=== PATIENT | female | born 1965 | race Hispanic/Latino ===

== ENCOUNTER 2024-05-10 22:32 | Emergency (ER) | payer BC ==
[~2024-05-10] VITALS: Ht 152.4 cm; Wt 72.6 kg
[~2024-05-10 22:32] MED LIST: METO-408 PO; NITR0.4T SL
[2024-05-10 22:33] VITALS: TEMP 98
--- NOTE | 2024-05-10 22:38 | EKG ---
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
[2024-05-10 22:51] LABS: BASOPHILS # (AUTO) 0.07 K/uL (0.00-0.20); BASOPHILS % (AUTO) 0.4 % (0.0-5.0); EOSINOPHILS # (AUTO) 0.45 K/uL (0.00-0.70); EOSINOPHILS % (AUTO) 2.6 % (0.0-8.0); HEMATOCRIT 35.9 % (36-48); IMMATURE GRANULOCYTE ABSOLUTE 0.07 K/uL (0-1); LYMPHOCYTES # (AUTO) 4.2 K/uL (1.0-4.8); LYMPHOCYTES % (AUTO) 24.3 % (21.0-51.0); MEAN CORPUSCULAR HEMOGLOBIN 28.2 pg (27.0-33.0); MEAN CORPUSCULAR HGB CONC 34.5 g/dL (32.0-36.0); MEAN CORPUSCULAR VOLUME 81.6 fL (79-99); MONOCYTES # (AUTO) 1.1 K/uL (0.1-1.0); MONOCYTES % (AUTO) 6.3 % (3.0-13.0); NEUTROPHILS # (AUTO) 11.4 K/uL (1.8-7.7); PLATELET COUNT (AUTO) 311 K/uL (130-400); RED CELL DISTRIBUTION WIDTH 13.2 % (11.0-15.5); WHITE BLOOD COUNT (AUTO) 17.2 K/uL (4.8-10.8)
[2024-05-10 22:58] LABS: CREATININE 0.6 mg/dL (0.5-1.0); POTASSIUM 3.6 mmol/L (3.5-5.1)
[2024-05-10 23:17] LABS: B-TYPE NATRIURETIC PEPTIDE 6 pg/mL (0-100)
--- NOTE | 2024-05-10 23:59 | NUR ---
PT PLACED IN ED ROOM 3. PT CARE ASSUMED AT THIS TIME
[2024-05-11] MEDS: acetaMINOPHEN 500 MG TABLET PO ONE (00:32)
--- NOTE | 2024-05-11 00:51 | ERN ---
General Chief Complaint: Chest Pain Stated Complaint: LEFT ARM PAIN Time Seen by MD: 22:33 Source: patient History of Present Illness Initial Comments 59-year-old female coming in with left-sided chest pain. She states that the pain began in her left upper extremity proximal. She states that the pain began there were started radiating to her left pectoralis muscle area. She was concerned because if she does have a history of CABG. She also states he took her nitroglycerin and states that it did help with the discomfort. Allergies: Coded Allergies: No Known Drug Allergies (Unverified Allergy, Unknown, 06/18/14) Home Meds Reported Medications Metoprolol Succinate (Metoprolol Succinate) 25 Mg Tab.er.24h, 25 MG PO AM, TAB 06/18/14 Nitroglycerin (Nitrostat) 0.4 Mg Tab.subl, 0.4 MG SL AD PRN for CHEST PAIN, TAB.SL 06/18/14 Past Medical History Past Medical History: Hypertension Past Surgical History: CABG, Other Surgical History Other: CARDIAC STENTS ROS Dictation CONSTITUTIONAL: No chills, no fever, no weakness, no diaphoresis, no malaise. HEAD/FACE: No signs of trauma. EENT: No eye pain, no blurred vision, no tearing, no double vision, no ear pain, no ear discharge, no nose pain, no nasal congestion, no throat pain, no throat swelling, no mouth pain. RESPIRATORY: No cough, no orthopnea, no SOB, no stridor, no wheezing. CARDIOVASCULAR: chest pain, no edema, no palpitations, no syncope. GASTROINTESTINAL/ABDOMINAL: No abdominal pain, no constipation, no diarrhea, no nausea, no vomiting. GENITOURINARY: No abnormal discharge, no dysuria, no frequent urination, no hematuria. No complaints of pain in the genitals. MUSCULOSKELETAL: No back pain, no gout, no joint pain, no joint swelling, muscle pain, no muscle stiffness, no neck pain. INTEGUMENTARY: No change in color, no change in hair/nails, no dryness, no lesion, no lumps, no rash. NEUROLOGICAL/PSYCH: No anxiety, not depressed, no emotional problem, no headache, no numbness, no pre-existing deficit, no history of seizures, no tremors, no weakness. HEMATOLOGIC/LYMPHATIC: Not anemic, no history of blood clots, no apparent bleed ing, no bruising, glands not swollen. All Systems Negative, Except as Noted. Physical Exam Physical Exam Dictation VITAL SIGNS: Reviewed. GENERAL APPEARANCE: Alert, oriented x3, no acute distress, obese. HEAD AND FACE: Non-traumatic. EYES: PERRL, pink conjunctivas, eyelid no trauma, anterior chamber clear. EARS: Pinnas intact and no signs of trauma or erythema. Ear canals clear and no discharge. TMs no erythema. NOSE: No discharge, no bleeding. OROPHARYNX: Mouth normal, teeth no caries, tongue pink. Pharynx clear, no erythema. Tonsils no exudates, no abscesses noted. Mucous membrane moist. NECK: Supple, non-tender, no thyromegaly, no masses, no JVD, no bruits. BREAST: Deferred. CHEST: tenderness, no crepitus, no paradoxical movement, no retractions. LUNGS: Clear, well-ventilated, symmetric, no rales, no wheezing, no rhonchi, no stridor, good breath sounds bilaterally. HEART: Regular rate, regular rhythm, no murmur, no gallops. VASCULAR: No peripheral edema. ABDOMEN: Soft, positive bowel sounds, nondistended, no guarding, nontender, no rebound, no masses no hepatomegaly, no splenomegaly, no Gilbert's sign, no hernias. RECTAL: Deferred. GENITAL: Deferred. NEUROLOGICAL: Normal speech, gross motor function intact, gross sensory function intact. MUSCULOSKELETAL: Neck nontender, full range of motion, back nontender, full range of motion. EXTREMITIES: Nontender, full range of motion. SKIN: Color pink, dry, no turgor, no rash, no lacerations, no abrasions, no contusions. LYMPHATICS: Deferred. Results Laboratory and Microbiology Lab and Micro Result Laboratory Tests Test 05/10/24 22:40 05/10/24 23:03 05/11/24 01:48 05/11/24 02:54 White Blood Count 17.2 K/uL (4.8-10.8) H Red Blood Count 4.40 MIL/uL (4.00-5.50) Hemoglobin 12.4 g/dL (12.0-16.0) Hematocrit 35.9 % (36-48) L Mean Corpuscular Volume 81.6 fL (79-99) Mean Corpuscular Hemoglobin 28.2 pg (27.0-33.0) Mean Corpuscular Hemoglobin Concent 34.5 g/dL (32.0-36.0) Red Cell Distribution Width 13.2 % (11.0-15.5) Platelet Count 311 K/uL (130-400) Mean Platelet Volume 9.5 fL (7.5-10.5) Immature Granulocyte % (Auto) 0.4 % (0-1) Neutrophils (%) (Auto) 66.0 % (40.0-77.0) Lymphocytes (%) (Auto) 24.3 % (21.0-51.0) Monocytes (%) (Auto) 6.3 % (3.0-13.0) Eosinophils (%) (Auto) 2.6 % (0.0-8.0) Basophils (%) (Auto) 0.4 % (0.0-5.0) Neutrophils # (Auto) 11.4 K/uL (1.8-7.7) H Lymphocytes # (Auto) 4.2 K/uL (1.0-4.8) Monocytes # (Auto) 1.1 K/uL (0.1-1.0) H Eosinophils # (Auto) 0.45 K/uL (0.00-0.70) Basophils # (Auto) 0.07 K/uL (0.00-0.20) Absolute Immature Granulocyte (auto 0.07 K/uL (0-1) Nucleated Red Blood Cells 0.0 % (0.0-0.19) Sodium Level 135 mmol/L (136-145) L Potassium Level 3.6 mmol/L (3.5-5.1) Chloride Level 98 mmol/L (101-111) L Carbon Dioxide Level 31 mmol/L (21-32) Blood Urea Nitrogen 8 mg/dL (7-18) Creatinine 0.6 mg/dL (0.5-1.0) Glomerular Filtration Rate Calc 103 mL/min (>90) Random Glucose 177 mg/dL (70-105) H Total Calcium 8.9 mg/dL (8.5-10.1) Total Creatine Kinase 68 U/L (21-232) # Troponin I High Sensitivity 5 ng/L (4-50) 5 ng/L (4-50) B-Type Natriuretic Peptide 6 pg/mL (0-100) Troponin I < 0.05 ng/mL (0.00-0.05) Urine Color LIGHT-YELLOW (YELLOW) Urine Appearance CLEAR (CLEAR) Urine pH 6.0 (5.0-8.0) Urine Specific Stephenson 1.015 (1.001-1.031) Urine Protein NEGATIVE mg/dL (NEGATIVE) Urine Glucose (UA) NEGATIVE mg/dL (NEGATIVE) Urine Ketones NEGATIVE mg/dL (NEGATIVE) Urine Occult Blood SMALL (NEGATIVE) H Urine Nitrate NEGATIVE (NEGATIVE) Urine Bilirubin NEGATIVE mg/dL (NEGATIVE) Urine Urobilinogen 0.2 mg/dL (0.2-1.0) Urine Leukocyte Esterase NEGATIVE Vianney/uL Labs Reviewed?: Yes EKG/XRAY/US/CT/MRI EKG Comment 05/10/2024 time 10:33 p.m. Ventricular rate 82 Sinus rhythm [place] [address] wave elevation or depression X-RAY Comment CHEST X-RAY NAD MDM MDM: Differential diagnosis: Chest pain, costochondritis, Patient is a 59-year-old female coming in to be evaluated for left-sided chest pain. On physical exam pain is reproducible on palpation extends to the left deltoid region. Laboratory workup negative for acute findings. Patient does have a history of angina at rest. Patient will be discharged pain-free. I advised her appropriate follow up with PCP in 1-2 days. ED Course Orders Procedure Category Date Status Time Vital Signs Per CPOE 05/10/24 Transmitted Routine 22:33 B-Type Natriuretic LAB 05/10/24 Complete Peptide 22:33 Chest 1vw RAD 05/10/24 Taken 22:33 12 Lead Ekg Tracing- EKG 05/10/24 Complete Technical 22:33 Oxygen By Nc/Pulse Ox CPOE 05/10/24 Transmitted 22:33 Maintain Iv CPOE 05/10/24 Transmitted 22:33 Iv Insertion CPOE 05/10/24 Transmitted 22:33 Cardiac Monitoring CPOE 05/10/24 Transmitted 22:33 Pulse Oximetry With CPOE 05/10/24 Transmitted Vs And Prn 22:33 Cbc With Differential LAB 05/10/24 Complete 22:33 Activity: Br W/Brp CPOE 05/10/24 Transmitted With Assist 22:33 Creatine Kinase, Total LAB 05/10/24 Complete 22:33 Troponin I High LAB 05/10/24 Complete Sensitivity 22:33 Urinalysis Profile LAB 05/10/24 In Process 22:33 Troponin Poc Order LAB 05/10/24 Complete Only 22:33 Bedside Troponin-I LAB.ER 05/10/24 In Process (Poc) 22:33 Basic Metabolic Panel LAB 05/10/24 Complete 22:33 Troponin I High LAB 05/11/24 Complete Sensitivity 00:15 Acetaminophen 500mg PHA 05/11/24 Complete Tab (Tylenol 500mg T 00:30 Current Medications Medications (Trade) Dose Ordered Sig/Francesca Route PRN Reason Start Time Stop Time Status Last Admin Dose Admin Acetaminophen (TYLenol 500MG TAB) 500 mg ONCE ONCE PO 05/11/24 00:30 05/11/24 00:31 DC 05/11/24 00:32 Vital Signs Date Time Temp Pulse Resp B/P (MAP) Pulse Ox O2 Delivery O2 Flow Rate FiO2 05/11/24 01:50 80 24 100/50 95 Room Air* 0 21 05/11/24 00:39 80 22 106/50 94 Room Air* 0 21 05/10/24 23:59 81 23 110/77 94 Room Air* 0 21 05/10/24 22:33 98.1 82 16 122/62 97 Room Air DX & DISP Disposition: Discharge Departure Impression: Primary Impression: Chest wall pain Additional Impression: Muscle pain Condition: Stable Additional Instructions: FOLLOW-UP WITH PRIMARY CARE PROVIDER IN 1 TO 2 DAYS. TAKE MEDICATIONS DIRECTED HERE IN THE EMERGENCY ROOM. OKAY TO CONTINUE HOME MEDICATIONS UNLESS OTHERWISE DISCUSSED DURING YOUR VISIT IN THE EMERGENCY ROOM TODAY. RETURN TO YOUR NEAREST EMERGENCY ROOM IF SYMPTOMS WORSEN OR IF THERE IS NO IMPROVEMENT. CALL 911 IF YOU NEED IMMEDIATE ASSISTANCE. TAKE TYLENOL [id number] NEEDED AND IF NO CONTRAINDICATIONS ARE PRESENT. INCREASE ORAL HYDRATION. A WOUND CULTURE OR URINE CULTURE WAS ORDERED HERE IN THE EMERGENCY ROOM DEPARTMENT PLEASE FOLLOW-UP WITH PRIMARY CARE PROVIDER AND ADVISE THEM TO GET REPEAT PORTS FROM OUR FACILITY. IF YOU HAD ANY CARLOS ALBERTO WRAP/SPLINTS THAT WERE APPLIED HERE, PLEASE DO NOT REMOVE THEM UNTIL YOU SEE YOUR PRIMARY CARE OR SPECIALTY. Referrals: Referrals: BRENNAN ANDREWS DO (PCP) Time of Disposition: 03:36 EMILIA RUELAS MD May 11, 2024 00:51
[2024-05-11 03:00] LABS: APPEARANCE,URINE CLEAR (CLEAR); BILIRUBIN,URINE NEGATIVE (NEGATIVE); COLOR,URINE LIGHT-YELLOW (YELLOW); GLUCOSE, URINE (UA) NEGATIVE (NEGATIVE); KETONES,URINE NEGATIVE (NEGATIVE); LEUKOCYTE ESTERASE ,URINE NEGATIVE Leu/uL (NEGATIVE); NITRATE,URINE NEGATIVE (NEGATIVE); OCCULT BLOOD,URINE SMALL (NEGATIVE); PROTEIN,URINE NEGATIVE (NEGATIVE); UROBILINOGEN,URINE 0.2 mg/dL (0.2-1.0)
[2024-05-11 03:01] LABS: ADD UA MICROSCOPIC YES
[2024-05-11 03:05] LABS: WBC,URINE 0-1 /HPF (0-1)
[2024-05-11 03:39] VITALS: BP 113/56; PULSE 82; RESP 26; O2SAT 95
--- NOTE | 2024-05-11 08:14 | HMCIMG ---
PORTABLE CHEST RADIOGRAPH INDICATION: CHEST PAIN COMPARISON: 01/12/2017 FINDINGS: Median sternotomy wires are in appropriate alignment. Heart size is normal. Mild calcific plaque is present along the aortic arch olmedo. The pulmonary vascularity and sha appear normal. No abnormal pulmonary parenchymal opacity or consolidation identified. No significant pleural effusion noted. No pneumothorax detected. IMPRESSION: No radiographic evidence for any acute cardiopulmonary process.
== END 2024-05-11 03:49 | disposition home or self-care (01) ==
LOC: EDH 22:32
DX: R07.89 Other chest pain (principal); M79.10 Myalgia, unspecified site; I10 Essential (primary) hypertension; Z95.1 Presence of aortocoronary bypass graft; Z95.5 Presence of coronary angioplasty implant and graft
CPT/HCPCS: 36415; 71045; 80048; 81001; 82550; 83880; 84484; 85025; 93005; 99284